=== PATIENT | female | born 1945 | race Two or more races ===

== ENCOUNTER 2019-09-22 09:36 | Inpatient (IN) | payer MEDICARE ==
[~2019-09-22] VITALS: Ht 160 cm; Wt 92.1 kg
--- NOTE | 2019-09-22 09:45 | NUR ---
, from home, c/o r hip pain 06/21 ps, s/p tripped over a box, -KO, hit head on the refrigerator. On room air, breathing evenly and unlabored. connected to the monitor and pulse ox. kept comfortable, will continue to monitor accordingyly.
[2019-09-22] MEDS ORDERED: MORPHINE SULFATE INJ 4 MG/ML DISP.SYRIN ONE (10:47)
[2019-09-22 10:59] LABS: BASOPHILS % (AUTO) 0.2 % (0.0-2.0); EOSINOPHILS % (AUTO) 0.2 % (0.0-6.0); HEMATOCRIT 43 % (33-45); HEMOGLOBIN 13.8 g/dL (11.5-14.8); LYMPHOCYTES # (AUTO) 0.8 /CMM (0.8-4.8); LYMPHOCYTES % (AUTO) 5.4 % (20.0-44.0); MEAN CORPUSCULAR HGB CONC 32 g/dl (31.0-36.0); MEAN CORPUSCULAR VOLUME 84 fL (82-100); MONOCYTES # (AUTO) 0.6 /CMM (0.1-1.30); MONOCYTES % (AUTO) 4.1 % (2.0-12.0); NEUTROPHILS # (AUTO) 13.7 /CMM (1.8-8.9); NEUTROPHILS % (AUTO) 90.1 % (43.0-81.0); PLATELET COUNT (AUTO) 274 /CMM (150-450); RED BLOOD CELL COUNT(AUTO) 5.08 MIL/uL (4.0-5.2); WHITE BLOOD COUNT (AUTO) 15.2 K/uL (4.3-11.0)
--- NOTE | 2019-09-22 10:59 | NUR ---
x-ray tech at bedside for exam.
[2019-09-22] MEDS ORDERED: MORPHINE SULFATE INJ 2 MG/ML DISP.SYRIN IV ONE ×2 (11:00→13:30)
[2019-09-22 11:09] LABS: CALCIUM, SERUM 12.1 mg/dL (8.5-10.1); CARBON DIOXIDE 23 mmol/L (21-32); CHLORIDE 106 mmol/L (98-107); CREATININE 1.3 mg/dL (0.6-1.3); GLUCOSE 143 mg/dL (74-106); POTASSIUM 4.5 mmol/L (3.5-5.1); SODIUM SERUM 141 mmol/L (136-145); UREA NITROGEN, BLOOD 22 mg/dL (7-18)
[2019-09-22 11:18] LABS: ALANINE AMINOTRANSFERASE 32 U/L (12-78); ALBUMIN 3.9 g/dL (3.4-5.0); ALKALINE PHOSPHATASE 108 U/L (46-116); ASPARTATE AMINOTRANSFERASE 27 U/L (15-37); BILIRUBIN,TOTAL 0.3 mg/dL (0.2-1.0); TOTAL PROTEIN, SERUM 8.2 g/dL (6.4-8.2)
[2019-09-22] MEDS ORDERED: AMLO10TA7 PO (12:36)
[2019-09-22] MEDS ORDERED: ATOR40TA PO (12:36)
[2019-09-22] MEDS ORDERED: LOSA100T31 PO (12:36)
--- NOTE | 2019-09-22 12:36 | NUR ---
ORTHO ON-CALL CALLED,FLAVIA ZAMORA,SPOKE WITH DR LOVE
--- NOTE | 2019-09-22 12:44 | NUR ---
PANEL SOLUTION COORDINATOR PAGED
[2019-09-22] MEDS ORDERED: ZOLPIDEM TARTRATE 5 MG TABLET PO PRN (13:00)
[2019-09-22] MEDS ORDERED: MAGNESIUM HYDROXIDE 30 ML UDC PO PRN (13:00)
[2019-09-22] MEDS ORDERED: ONDANSETRON HCL/PF 4 MG/2 ML VIAL IVP PRN (13:00)
[2019-09-22] MEDS ORDERED: Z GUARD REMEDY 2 OZ OINT TP PRN (13:00)
[2019-09-22] MEDS ORDERED: MAG HYDROX/AL HYDROX/SIMETH 30 ML UDC PO PRN (13:00)
[2019-09-22] MEDS ORDERED: ACETAMINOPHEN 325 MG TABLET PO PRN (13:00)
[2019-09-22] MEDS ORDERED: MORPHINE SULFATE INJ 10 MG/ML DISP.SYRIN IV ONE (13:30)
[2019-09-22] MEDS ORDERED: NORMAL SALINE 10 ML DISP.SYRIN IV PRN (13:30)
[2019-09-22] MEDS ORDERED: MORPHINE SULFATE INJ 2 MG/ML DISP.SYRIN ONE (13:37)
--- NOTE | 2019-09-22 14:52 | NUR ---
report given to Rabia REID for matt.
--- NOTE | 2019-09-22 15:46 | NUR ---
MS WAX COATING MACHINE TENDER NOTES Received Patient via gurney. A/O x 4. Noted high blood pressure 210/95. Will intervene as ordered. Otherwise Patient in stable condition. Breathing even and unlabored on room air with no respiratory distress, SPO2 99%. Patient stated pain on Right Hip upon movement, otherwise comfortable when resting. Provided comfort measures and provided clean, quiet environment. Skin assessment pictures taken and placed in chart. Lucio Cath in place and patent with 125ml clear yellow output noted. 20g PIV on Right Hand clean, dry, intact and flushing well. Safety precautions in place. Bed locked and set to lowest position with side rails x 2 up. All needs rendered at this time. Call light within reach. Will continue to monitor.
--- NOTE | 2019-09-22 15:59 | NUR ---
Wheeled patient via gurney going to room 205-1, RN at bedside to assume care.
[2019-09-22 16:00] VITALS: BP 210/95
[2019-09-22] MEDS: LOSARTAN POTASSIUM 50 MG TABLET PO SCH (17:16)
--- NOTE | 2019-09-22 19:00 | NUR ---
RN MS OPENING NOTES RECEIVED PATIENT IN BED AWAKE ALERT AND ORIENTED X4, RESPIRATIONS EVEN AND UNLABORED WITH EQUAL RISE AND FALL OF CHEST, AT THIS TIME DENIES ANY PAIN OR DISCOMFORT, IV SITE TO RIGHT HAND #20 G INTACT AND PATENT, SAMUELS CATHETER INTACT AND DRAINING URINE YELLOW, ORIENTED TO STAFF AND CALL LIGHT AND KEPT WITHIN REACH ALL NEEDS ATTENDED AT THIS TIME, WILL CONTINUE TO MONITOR AND ATTEND TO NEEDS.
--- NOTE | 2019-09-22 19:30 | NUR ---
MS RN CLOSING NOTES Patient asleep and resting in bed. A/O x 4. Patient in stable condition. Breathing even and unlabored on room air with no respiratory distress. Patient stated pain on Right Hip upon movement, otherwise comfortable when resting. Provided comfort measures and provided clean, quiet environment. Unable to assess Patients back. Patient refused to turn at this time. Lucio Cath in place and patent with clear yellow output noted. 20g PIV on Right Hand clean, dry, intact and flushing well. Safety precautions in place. Bed locked and set to lowest position with side rails x 2 up. All needs rendered at this time. Call light within reach. Will endorse plan of care to oncoming shift.
--- NOTE | 2019-09-22 19:48 | NUR ---
RN MS NOTES PATIENT COMPLAINT OF PAIN TO RIGHT HIP AREA 03/21 NOTED FACIAL GRIMACING NOTED CHANGE IN VS 174/82,HR 117 OFFERED NORCO PRN PATIENT AGREED NORCO PRN GIVEN ORDERED, WILL CONTINUE TO MONITOR EFFECTIVENESS, AND ANY FURTHER CHANGES IN VS.
[2019-09-22] MEDS: HYDROCODONE/APAP 5/325MG 1 EACH TABLET PO PRN (19:49)
[2019-09-22 20:00] VITALS: BP 168/85
[2019-09-22] MEDS: ATORVASTATIN 40 MG TABLET PO SCH (21:16)
--- NOTE | 2019-09-22 23:34 | NUR ---
RN MS NOTES GALO MADE AWARE OF NO CHANGE IN BLOOD PRESSURE NOTED SINCE NORCO ADMINISTRATION B/P STILL TRENDING 168/85-174/82 DESPITE PAIN MEDICATION GIVEN AND EFFECTIVE. PER PATIENT STATES B/P RUNS ON THE HIGHER SIDE, NEW ORDER OBTAINED AND RB HYDRALAZINE 20 MG PO ONCE NOW. WILL CONTINUE TO MONITOR.
[2019-09-22] MEDS ORDERED: hydrALAZINE HCL 10 MG TABLET ONE (23:57)
[2019-09-23] MEDS ORDERED: hydrALAZINE HCL 10 MG TABLET PO ONE
[2019-09-23] MEDS: MORPHINE SULFATE INJ 2 MG/ML DISP.SYRIN IV PRN (05:30)
--- NOTE | 2019-09-23 05:34 | NUR ---
rn ms notes patient complaint of pain 04/21. requested for pain medication morphine prn offered patient agreed, will continue to monitor for effectiveness.
--- NOTE | 2019-09-23 06:44 | NUR ---
RN MS CLOSING NOTES PATIENT IN BED AWAKE ALERT AND ORIENTED X4, RESPIRATIONS EVEN AND UNLABORED WITH EQUAL RISE AND FALL OF CHEST, AT THIS TIME DENIES ANY PAIN OR DISCOMFORT, IV SITE TO RIGHT HAND #20 G INTACT AND PATENT, SAMUELS CATHETER INTACT AND DRAINING URINE YELLOW 750CC TOTOAL OUTPUT,CALL LIGHT KEPT WITHIN REACH ALL NEEDS ATTENDED AT THIS TIME, WILL CONTINUE TO MONITOR AND ATTEND TO NEEDS , REPOSITIONED TOLERATED WILL ENDORSE TO NEXT SHIFT.
[2019-09-23 06:47] LABS: BASOPHILS % (AUTO) 0.2 % (0.0-2.0); EOSINOPHILS % (AUTO) 0.2 % (0.0-6.0); HEMATOCRIT 39 % (33-45); LYMPHOCYTES # (AUTO) 1.6 /CMM (0.8-4.8); MEAN CORPUSCULAR HGB CONC 33 g/dl (31.0-36.0); MEAN CORPUSCULAR VOLUME 82 fL (82-100); MONOCYTES # (AUTO) 0.8 /CMM (0.1-1.30); MONOCYTES % (AUTO) 7.3 % (2.0-12.0); NEUTROPHILS % (AUTO) 78.3 % (43.0-81.0); PLATELET COUNT (AUTO) 278 /CMM (150-450); RED BLOOD CELL COUNT(AUTO) 4.76 MIL/uL (4.0-5.2); WHITE BLOOD COUNT (AUTO) 11.5 K/uL (4.3-11.0)
[2019-09-23 07:22] LABS: CALCIUM, SERUM 11.5 mg/dL (8.5-10.1); CREATININE 1.2 mg/dL (0.6-1.3); MAGNESIUM 2.2 mg/dL (1.8-2.4); PHOSPHORUS 2.5 mg/dL (2.5-4.9); POTASSIUM 4.2 mmol/L (3.5-5.1)
--- NOTE | 2019-09-23 07:30 | NUR ---
M/S RN NOTES PATIENT IN BED AWAKE, ALERT AND ORIENTED X4. NO RESPIRATORY DISTRESS, PAIN TOLERABLE AT 5/10, OFFERED PAIN MEDICATIONS ORDERED BUT DOESN'T WANT. PATIENT'S SKIN WARM TO TOUCH, IV ACCESS SITE INTACT AND PATENT. PATIENT'S NEEDS ATTENDED, BED ON LOWEST LOCKED POSITION, CALL LIGHT WITHIN REACH. WILL CONTINUE TO MONITOR.
[2019-09-23 07:46] LABS: THYROID STIMULATING HORMONE 2.296 uIU/mL (0.358-3.74)
[2019-09-23] MEDS ORDERED: IV NS 0.9% 1,000 ML IV PRN (07:46)
[2019-09-23 08:00] VITALS: BP 205/95
[2019-09-23] MEDS: LOSARTAN POTASSIUM 50 MG TABLET PO SCH (08:02)
[2019-09-23] MEDS: PANTOPRAZOLE 40 MG TABLET.DR PO SCH (08:02)
[2019-09-23] MEDS: AMLODIPINE BESYLATE 10 MG TABLET PO SCH (08:02)
--- NOTE | 2019-09-23 09:30 | NUR ---
M/S RN NOTES PATIENT'S BP AT 0730 WAS 209/96, 107, GAVE MEDICATIONS ORDERED RECHECKED AND BP AT 218/100, 102. NOTIFIED MD OF V/S AND THAT PATIENT REFUSES PAIN MEDS AT THIS TIME. AWAITING FOR ORDERS.
[2019-09-23] MEDS: HYDROCODONE/APAP 5/325MG 1 EACH TABLET PO PRN ×3 (09:43→20:17)
[2019-09-23] MEDS: hydrALAZINE HCL IV 20 MG VIAL IV PRN ×2 (10:21→20:16)
--- NOTE | 2019-09-23 10:23 | NUR ---
M/S RN NOTES PER MD ORDER HYDRALAZINE 10MG IV Q4H PRN FOR SBP >160. PATIENT'S BP AT 212/96, 102. MEDICATION GIVEN ORDERED AND WILL REASSESS V/S IN AN HOUR.
--- NOTE | 2019-09-23 12:11 | NUR ---
M/S RN NOTES PATIENT'S BP AT 119/88, 102. PATIENT COMFORTABLE AT THIS TIME, FAMILY AT BEDSIDE. WILL CONTINUE TO MONITOR.
[2019-09-23 16:00] VITALS: BP 170/90
--- NOTE | 2019-09-23 18:50 | NUR ---
M/S RN NOTES PATIENT RESTING IN BED, NO RESPIRATORY DISTRESS, PAIN TOLERABLE AT THIS TIME. PATIENT'S IV ACCESS SITE INTACT AND PATENT. SKIN WARM TO TOUCH. PATIENT'S NEEDS ATTENDED, BED ON LOWEST LOCKED POSITION, CALL LIGHT WITHIN REACH. WILL ENDORSE TO ONCOMING NURSE.
--- NOTE | 2019-09-23 19:05 | NUR ---
RN MS OPENING NOTES RECEIVED PATIENT IN BED AWAKE ALERT AND ORIENTED X4, RESPIRATIONS EVEN AND UNLABORED WITH EQUAL RISE AND FALL OF CHEST, AT THIS TIME DENIES ANY PAIN OR DISCOMFORT, IV SITE TO RIGHT HAND #20 G INTACT AND PATENT, NO REDNESS, NO INFILTRATION PRESENT, SAMUELS CATHETER INTACT AND DRAINING URINE YELLOW, ORIENTED TO STAFF AND CALL LIGHT AND KEPT WITHIN REACH ALL NEEDS ATTENDED AT THIS TIME, SAFETY PRECAUTIONS IN PLACE , LOW BED AND LOCKED, PATIENT AWARE OF NPO AT MIDNIGHT FOR SCHEDULED AM PROCEDURE FOR SURGERY.WILL CONTINUE TO MONITOR AND ATTEND TO NEEDS. REPOSITIONING OFFERED AND FLUID OFFERED.
[2019-09-23 20:00] VITALS: BP 192/78
--- NOTE | 2019-09-23 20:16 | NUR ---
RN MS NOTES NOTED PATIENT BLOOD PRESSURE ELEVATED AT 192/78,105 PATIENT ASYMPTOMATIC HYDRALAZINE PRN ORDERED GIVEN FOR ELEVATED BLOOD PRESSURE, WILL CONTINUE TO MONITOR FOR EFFECTIVENESS.
--- NOTE | 2019-09-23 20:17 | NUR ---
RN MS NOTES PATIENT ALSO STATES SHE HAS PAIN 8/10 REQUESTED FOR NORCO PRN GIVEN ORDERED WILL CONTINUE TO MONITOR FOR EFFECTIVENESS.
[2019-09-23 20:38] VITALS: BP 192/78
[2019-09-23] MEDS: ATORVASTATIN 40 MG TABLET PO SCH (22:07)
[2019-09-24] VITALS (8 sets, daily range): BP systolic 138–175; BP diastolic 67–89
[2019-09-24] MEDS ORDERED: IV D5/0.45 NACL 1,000 ML IV PRN
[2019-09-24] MEDS: hydrALAZINE HCL IV 20 MG VIAL IV PRN (05:42)
--- NOTE | 2019-09-24 05:42 | NUR ---
RN MS NOTES NOTED BLOOD PRESSURE ELEVATED AT 198/89,115 HYDRALAZINE PRN ORDERED GIVEN WILL CONTINUE TO MONITOR PATIENT IS ASYMPTOMATIC.
[2019-09-24] MEDS: HYDROCODONE/APAP 5/325MG 1 EACH TABLET PO PRN ×3 (05:45→16:32)
--- NOTE | 2019-09-24 05:45 | NUR ---
RN MS NOTES PATIENT COMPLAINT OF PAIN TO RIGHT HIP 04/21 REQUESTED FOR NORCO PRN NORCO GIVEN ORDERED, ORDERED NPO EXCEPT FOR MEDS.
[2019-09-24 06:23] LABS: BASOPHILS % (AUTO) 0.3 % (0.0-2.0); EOSINOPHILS % (AUTO) 0.1 % (0.0-6.0); HEMATOCRIT 39 % (33-45); HEMOGLOBIN 13.1 g/dL (11.5-14.8); LYMPHOCYTES # (AUTO) 1.3 /CMM (0.8-4.8); LYMPHOCYTES % (AUTO) 12.7 % (20.0-44.0); MEAN CORPUSCULAR HGB CONC 34 g/dl (31.0-36.0); MEAN CORPUSCULAR VOLUME 83 fL (82-100); MONOCYTES % (AUTO) 9.4 % (2.0-12.0); NEUTROPHILS # (AUTO) 8.2 /CMM (1.8-8.9); NEUTROPHILS % (AUTO) 77.5 % (43.0-81.0); PLATELET COUNT (AUTO) 251 /CMM (150-450); RED BLOOD CELL COUNT(AUTO) 4.74 MIL/uL (4.0-5.2); WHITE BLOOD COUNT (AUTO) 10.6 K/uL (4.3-11.0)
[2019-09-24 06:29] LABS: ALBUMIN 3.3 g/dL (3.4-5.0); BILIRUBIN,TOTAL 0.6 mg/dL (0.2-1.0); CALCIUM, SERUM 11.6 mg/dL (8.5-10.1); CREATININE 1.3 mg/dL (0.6-1.3); MAGNESIUM 2.1 mg/dL (1.8-2.4); PHOSPHORUS 2.5 mg/dL (2.5-4.9); TOTAL PROTEIN, SERUM 7.8 g/dL (6.4-8.2)
--- NOTE | 2019-09-24 07:30 | NUR ---
RN OPENING NOTES RECEIVED PATIENT IN BED RESTING. A/OX4, ABLE TO MAKE NEEDS KNOWN. NOT IN ANY FORM OF DISTRESS. NO SOB. DENIED PAIN AT THIS TIME. IV ACCESS INTACT AND PATENT. KEPT PATIENT SAFE AND COMFORTABLE. BED IN LOW/LOCKED POSIITON. SIDERAILS UPX2, CALL LIGHT IN REACH. WILL CONT TO MONITOR ACCORDINGLY.
--- NOTE | 2019-09-24 07:47 | NUR ---
RN MS CLOSING NOTES PATIENT IN BED AWAKE ALERT AND ORIENTED X4, RESPIRATIONS EVEN AND UNLABORED WITH EQUAL RISE AND FALL OF CHEST, AT THIS TIME DENIES ANY PAIN OR DISCOMFORT, IV SITE TO RIGHT HAND #20 G INTACT AND PATENT, NO REDNESS, NO INFILTRATION PRESENT, SAMUELS CATHETER INTACT AND DRAINING URINE YELLOW, CALL LIGHT KEPT WITHIN REACH ALL NEEDS ATTENDED AT THIS TIME, SAFETY PRECAUTIONS IN PLACE , LOW BED AND LOCKED, PATIENT AWARE OF NPO AT MIDNIGHT FOR SCHEDULED AM PROCEDURE FOR SURGERY.WILL CONTINUE TO MONITOR AND ATTEND TO NEEDS AND ENDORSE TO NEXT SHIFT,PATIENT FREQUENTLY OFFERED TO BE CLEANED AND REPOSITIONED AND PATIENT REFUSED.
[2019-09-24] MEDS: AMLODIPINE BESYLATE 10 MG TABLET PO SCH (08:14)
[2019-09-24] MEDS: LOSARTAN POTASSIUM 50 MG TABLET PO SCH (08:14)
[2019-09-24] MEDS: PANTOPRAZOLE 40 MG TABLET.DR PO SCH (08:14)
[2019-09-24] MEDS: MORPHINE SULFATE INJ 2 MG/ML DISP.SYRIN IV PRN (08:16)
--- NOTE | 2019-09-24 08:50 | NUR ---
RN NOTES OFFERED TURNING AND REPOSITIONING X3 BUT PATIENT REFUSED EVEN WITH PAIN MEDICATION GIVEN. EXPLAINED RISK OF HAVING BEDSORE BUT STILL REFUSED. PER PATIENT, "IT'S OK. IM GONA WAIT TILL AFTER MY SURGERY. JUST LET ME BE PLEASE.". "
[2019-09-24] MEDS ORDERED: MIDAZOLAM HCL 2 MG/2ML VIAL ONE (10:48)
[2019-09-24] MEDS ORDERED: FENTANYL PF 250MCG/5ML AMPUL ONE (10:49)
[2019-09-24] MEDS ORDERED: MEPERIDINE HCL/PF 100 MG/ML DISP.SYRIN ONE (10:50)
[2019-09-24] MEDS ORDERED: FAMOTIDINE/PF INJ 20 MG/2 ML VIAL IV ONE (10:50)
[2019-09-24] MEDS ORDERED: ROCURONIUM BROMIDE 50 MG/5 ML ONE (10:51)
--- NOTE | 2019-09-24 11:45 | NUR ---
rn notes picked up for surgery
[2019-09-24] MEDS ORDERED: hydrALAZINE HCL 25 MG TABLET PO SCH (12:00)
[2019-09-24] MEDS ORDERED: BACITRACIN 50000 UNITS/VIAL ONE (12:14)
[2019-09-24] MEDS ORDERED: BUPIVACAINE 0.5 % PF 150 MG/30 ML VIAL ONE (12:14)
[2019-09-24] MEDS ORDERED: TRANEXAMIC ACID 1,000 MG in IV NS 0.9% 100 ML IV ONE (12:30)
[2019-09-24] MEDS ORDERED: VANCOMYCIN 1 GM VIAL ONE (14:40)
[2019-09-24] MEDS: hydrALAZINE HCL 25 MG TABLET PO PRN (16:22)
--- NOTE | 2019-09-24 16:22 | NUR ---
rn notes came back from surgery. patient in stable condition. VSS. sedated, responsive to verbal and tactile stimuli. abductor pillow in place. right hip incision dressing c/d/i. orders noted and will carry out. will monitor patient accordingly.
[2019-09-24] MEDS ORDERED: IV LR 1000 ML 1,000 ML IV PRN (16:30)
[2019-09-24 17:22] LABS: HEMOGLOBIN 12.7 g/dL (11.5-14.8)
--- NOTE | 2019-09-24 18:00 | NUR ---
rn notes offered turning and repositioning. patient refused and stated "just let me rest for now please.". patient is comfortably sleeping.
--- NOTE | 2019-09-24 19:05 | NUR ---
RN MS OPENING NOTES RECEIVED PATIENT IN BED AWAKE ALERT AND ORIENTED X4, RESPIRATIONS EVEN AND UNLABORED WITH EQUAL RISE AND FALL OF CHEST, AT THIS TIME DENIES ANY PAIN OR DISCOMFORT, IV SITE TO RIGHT HAND #20 G INTACT AND PATENT, NO REDNESS, NO INFILTRATION PRESENT, SAMUELS CATHETER INTACT AND DRAINING URINE YELLOW, CALL LIGHT KEPT WITHIN REACH ALL NEEDS ATTENDED AT THIS TIME, SAFETY PRECAUTIONS IN PLACE , LOW BED AND LOCKED, ABDUCTOR PILLOW IN PLACE, WILL CONTINUE TO MONITOR AND ATTEND TO NEEDS,PATIENT OFFERED TO BE CLEANED AND REPOSITIONED AND PATIENT REFUSED AT THIS TIME STATES " NO IM OKAY RIGHT NOW I WILL LET YOU KNOW" WILL CONTINUE TO MONITOR.
--- NOTE | 2019-09-24 19:31 | NUR ---
RN CLOSING NOTES PATIENT IN STABLE CONDITION. ALL NEEDS ATTENDED AND PROVIDED. ALL DUE MEDICATIONS GIVEN ORDERED. KEPT PATIENT SAFE AND COMFORTABLE. BED IN LOW/LOCKED POSITION. SIDERAILS UPX2, CALL LIGHT IN REACH. ENDORSED TO BUD REID FOR SILVIA.
[2019-09-24] MEDS: CEFAZOLIN 2 GM in IV D5W 100 ML IV SCH (21:38)
[2019-09-24] MEDS: ATORVASTATIN 40 MG TABLET PO SCH (21:40)
[2019-09-25] MEDS: HYDROCODONE/APAP 5/325MG 1 EACH TABLET PO PRN ×3 (03:49→19:25)
[2019-09-25] MEDS: CEFAZOLIN 2 GM in IV D5W 100 ML IV SCH (05:01)
--- NOTE | 2019-09-25 06:06 | NUR ---
RN MS NOTES ANTERIOR SKIN CLEANSED REQUESTED BY PATIENT GOWN CHANGE PROVIDED, ENCOURAGED PATIENT TO TURN AND REPOSITION DESPITE EDUCATION , PATIENT ALERT AND ORIENTED X4, PATIENT HOWEVER DID NOT WANT TO BE TURNED, STATES " SHE IS COMFORTABLE IN SLIGHT LEFT LATERAL POSITION AND SUPINE POSITION."
--- NOTE | 2019-09-25 07:07 | NUR ---
RN MS CLOSING NOTES PATIENT IN BED AWAKE ALERT AND ORIENTED X4, RESPIRATIONS EVEN AND UNLABORED WITH EQUAL RISE AND FALL OF CHEST, AT THIS TIME DENIES ANY PAIN OR DISCOMFORT, IV SITE TO RIGHT HAND #20 G INTACT AND PATENT, NO REDNESS, NO INFILTRATION PRESENT, SAMUELS CATHETER INTACT AND DRAINING URINE YELLOW 400 OUT PUT, CALL LIGHT KEPT WITHIN REACH ALL NEEDS ATTENDED AT THIS TIME, SAFETY PRECAUTIONS IN PLACE , LOW BED AND LOCKED, ABDUCTOR PILLOW IN PLACE, WILL CONTINUE TO MONITOR AND ATTEND TO NEEDS,PATIENT OFFERED TO BE CLEANED AND REPOSITIONED AND PATIENT REFUSED, WILL CONTINUE TO MONITOR AND ENDORSE TO NEXT SHIFT. PATIENT REMAINS STABLE THROUGHOUT SHIFT.
--- NOTE | 2019-09-25 07:15 | NUR ---
MS RN NOTES PATIENT IN BED ALERT ORIENTED X 4. NO ACUTE DISTRESS NOTED. BREATHING UNLABORED. NO SOB NOTED. DENIED ANY PAIN AT THIS TIME. RIGHT HIP SURGICAL DRESSING CLEAN DRY AND INTACT. SAFETY MEASURES IN PLACE. CALL LIGHT WITHIN REACH. WILL CONTINUE TO MONITOR ACCORDINGLY.
[2019-09-25 07:38] LABS: BASOPHILS % (AUTO) 0.2 % (0.0-2.0); HEMATOCRIT 35 % (33-45); HEMOGLOBIN 11.2 g/dL (11.5-14.8); LYMPHOCYTES # (AUTO) 0.9 /CMM (0.8-4.8); LYMPHOCYTES % (AUTO) 7.8 % (20.0-44.0); MEAN CORPUSCULAR HGB CONC 32 g/dl (31.0-36.0); MEAN CORPUSCULAR VOLUME 84 fL (82-100); MONOCYTES % (AUTO) 9.5 % (2.0-12.0); NEUTROPHILS % (AUTO) 82.5 % (43.0-81.0); PLATELET COUNT (AUTO) 232 /CMM (150-450); RED BLOOD CELL COUNT(AUTO) 4.16 MIL/uL (4.0-5.2); WHITE BLOOD COUNT (AUTO) 10.9 K/uL (4.3-11.0)
[2019-09-25] MEDS: PANTOPRAZOLE 40 MG TABLET.DR PO SCH (07:57)
[2019-09-25 08:00] VITALS: BP 142/72
[2019-09-25 08:08] LABS: ALANINE AMINOTRANSFERASE 23 U/L (12-78); ALBUMIN 2.6 g/dL (3.4-5.0); ALKALINE PHOSPHATASE 73 U/L (46-116); ASPARTATE AMINOTRANSFERASE 39 U/L (15-37); BILIRUBIN,TOTAL 0.3 mg/dL (0.2-1.0); CALCIUM, SERUM 10.9 mg/dL (8.5-10.1); CARBON DIOXIDE 22 mmol/L (21-32); CHLORIDE 103 mmol/L (98-107); CREATININE 1.4 mg/dL (0.6-1.3); GLUCOSE 138 mg/dL (74-106); MAGNESIUM 2.1 mg/dL (1.8-2.4); PHOSPHORUS 3.2 mg/dL (2.5-4.9); POTASSIUM 4.6 mmol/L (3.5-5.1); SODIUM SERUM 136 mmol/L (136-145); TOTAL PROTEIN, SERUM 6.8 g/dL (6.4-8.2); UREA NITROGEN, BLOOD 19 mg/dL (7-18)
[2019-09-25] MEDS: LOSARTAN POTASSIUM 50 MG TABLET PO SCH (08:51)
[2019-09-25] MEDS: AMLODIPINE BESYLATE 10 MG TABLET PO SCH (08:52)
--- NOTE | 2019-09-25 10:16 | NUR ---
MS RN NOTES RECEIVED NEW ORDER FROM DR ROSEANNE ROQUE FOR PT EVALUATION AND WBAT. NOTED AND CARRIED OUT.
--- NOTE | 2019-09-25 12:38 | NUR ---
MS RN NOTES PATIENT SEEN AND EVALUATED BY REJI AMARO WITH ORDERS TO DISCONTINUE IVF AND MAY DISCONTINUE SAMUELS CATHETER AT 1500, NOTED AND CARRIED OUT.
[2019-09-25] MEDS ORDERED: PANT40TA2 PO (14:00)
[2019-09-25] MEDS ORDERED: ZOLP5TAB2 PO (14:00)
[2019-09-25] MEDS ORDERED: HYDR-3972 PO (14:00)
[2019-09-25] MEDS ORDERED: ACET325T53 PO (14:00)
[2019-09-25] MEDS ORDERED: MAGN400O6 PO (14:00)
[2019-09-25] MEDS ORDERED: ENOX40DI SQ (14:00)
[2019-09-25] MEDS ORDERED: HYDR-4076 PO (14:00)
[2019-09-25 15:50] LABS: APPEARANCE,URINE HAZY (CLEAR); BILIRUBIN,URINE NEGATIVE (NEGATIVE); BLOOD, URINE MODERATE Ery/uL (NEGATIVE); COLOR,URINE YELLOW (YELLOW); KETONES,URINE NEGATIVE (NEGATIVE); LEUKOCYTE ESTERASE ,URINE MODERATE (NEGATIVE); NITRITE, URINE NEGATIVE (NEGATIVE); PROTEIN,URINE TRACE mg/dl (NEGATIVE); UGLUCOSE NEGATIVE (NEGATIVE); UROBILINOGEN,URINE 0.2 EU/dL (0.2)
--- NOTE | 2019-09-25 15:50 | NUR ---
MS RN NOTES SAMUELS CATHETER REMOVED WILL CONTINUE TO MONITOR FOR URINARY RETENTION
[2019-09-25] MEDS: ENOXAPARIN SODIUM 40 MG/0.4 ML DISP.SYRIN SQ SCH (15:53)
[2019-09-25 16:00] VITALS: BP 147/81
[2019-09-25 16:00] LABS: RBC,URINE 21-50 /HPF (0-2); WBC,URINE TOO NUMEROUS TO COUN /HPF (0-3)
[2019-09-25 16:01] LABS: BACTERIA,URINE 1+ /HPF (None Seen); SQUAMOUS EPITHELIAL CELL,UR Few /HPF (None Seen)
--- NOTE | 2019-09-25 19:00 | NUR ---
MS RN NOTES PATIENT IN BED ALERT ORIENTED X 4. NO ACUTE DISTRESS NOTED. BREATHING UNLABORED. NO SOB NOTED. DENIED ANY PAIN AT THIS TIME. RIGHT HIP SURGICAL DRESSING CLEAN DRY AND INTACT. SAFETY MEASURES IN PLACE. CALL LIGHT WITHIN REACH. PATIENT FOR DISCHARGE TO [place] [facility] WAITING FOR PELLETIZER OPERATOR, REPORT GIVEN TO SIMIN REID INCLUDING FOLLOW UP ROSEANNE VALLECILLO AND MONITORING FOR URINARY RETENTION DUE TO SAMUELS CATHETER REMOVED, VERBALIZED UNDERSTANDING. ENDORSE TO NIGHT NURSE FOR CONTINUATION OF CARE AND DISCHARGE.
--- NOTE | 2019-09-25 19:00 | NUR ---
MS RN NOTE RECEIVED PT IN STABLE CONDITION A/O X4, FAMILY AT BEDSIDE. NOTED WITH AMBULANCE PERSONNEL AT BEDSIDE AWAITING TO TAKE PT FOR DISCHARGE. CURRENT BLOOD PRESSURE HIGH, PRN HYDRALAZINE GIVEN FOR BP. NOTIFIED OF DELAYED DISCHARGE, WILL RECHECK BP IN 1 HR. NO SIGNS OF SOB OR DISTRESS, PAIN MANAGED BY MEDICATION. IV IN L HAND #[address] ALL CURRENT NEEDS ATTENDED TO. BED LOW, LOCKED, UPPER RAILS UP, AND CALL LIGHT WITHIN REACH. WILL CONT. TO MONITOR. Addendum: 09/26/19 at 0347 by TERESA MURRELL RN SURGICAL DRESSING NOTED TO BE DRY AND INTACT.
[2019-09-25] MEDS: hydrALAZINE HCL 25 MG TABLET PO PRN (19:24)
--- NOTE | 2019-09-25 20:35 | NUR ---
MS RN NOTE PT VITALS RECHECKED VITAL SIGNS NOTED TO BE: 152/77, 98.8, 19, 110, 95.
[2019-09-25 21:04] VITALS: BP 152/77
--- NOTE | 2019-09-25 21:16 | NUR ---
MS RN NOTE [facility] CALLED FOR NEW TRANSPORTATION NEXT AVAILABLE GRANULIZING MACHINE OPERATOR TIME IS 0100, PT MADE AWARE AND WANTS TO LEAVE TOMORROW MORNING. FLAQUITA BERTRAND MADE AWARE AND AGREED TO LET PT STAY ONE MORE NIGHT. STEFAN TOBACCO CONDITIONER ALSO MADE AWARE. WILL CONT. TO MONITOR PT.
[2019-09-25] MEDS: ATORVASTATIN 40 MG TABLET PO SCH (21:25)
--- NOTE | 2019-09-25 21:58 | NUR ---
MS RN NOTE NEW TRANSPORTATION ARRANGED WITH [facility]. SPOKE WITH [facility] #[id number] WITH MARKETING EXECUTIVE TIME 1145, WILL ENDORSE TO NEXT SHIFT. [facility] NOTIFIED. FAMILY MEMBER KENNETH ALSO MADE AWARE. Addendum: 09/25/19 at 2206 by TERESA MURRELL RN SPOKE WITH AGAPITO AT [facility], AND LEFT MESSAGE FOR KENNETH.
--- NOTE | 2019-09-26 00:40 | NUR ---
MS RN NOTE BLADDER SCANNED, WITH 412 ML NOTED. JERZY PAGED WITH NEW ORDER FOR IN AND OUT CATH. NEW ORDER CARRIED OUT.
--- NOTE | 2019-09-26 01:30 | NUR ---
MS RN NOTE PT IN AND OUT CATHETERIZED, NOTED 400 ML OUT, WILL CONTINUE TO MONITOR THROUGHOUT SHIFT.
[2019-09-26 05:06] LABS: CREATININE, URINE 86.1 MG/DL (30.0-125.0); URINE TOTAL PROTEIN 73.1 mg/dL (0-11.9)
[2019-09-26] MEDS: HYDROCODONE/APAP 5/325MG 1 EACH TABLET PO PRN (05:41)
--- NOTE | 2019-09-26 06:48 | NUR ---
MS RN NOTE PT REMAINS IN STABLE CONDITION A/O X4. NO SIGNS OF SOB OR DISTRESS, PAIN MANAGED BY MEDICATION. SURGICAL DRESSING REMAINS DRY AND INTACT, NOTED WITH ABDUCTOR PILLOW IN BETWEEN LEGS. IV IN L HAND #[address] ALL CURRENT NEEDS ATTENDED TO. BED LOW, LOCKED, UPPER RAILS UP, AND CALL LIGHT WITHIN REACH. WILL CONT. TO MONITOR AND ENDORSE TO NEXT SHIFT FOR SILVIA.
--- NOTE | 2019-09-26 07:15 | NUR ---
MS RN NOTES PATIENT IN BED ALERT ORIENTED X 4. NO ACUTE DISTRESS NOTED. BREATHING UNLABORED. NO SOB NOTED. DENIED ANY PAIN AT THIS TIME. ABDUCTOR PILLOW IN PLACE PROPERLY. SAFETY MEASURES IN PLACE. CALL LIGHT WITHIN REACH. WILL CONTINUE TO MONITOR ACCORDINGLY.
[2019-09-26] MEDS: PANTOPRAZOLE 40 MG TABLET.DR PO SCH (07:43)
[2019-09-26 08:00] VITALS: BP 148/91
[2019-09-26 08:52] LABS: BASOPHILS % (AUTO) 0.2 % (0.0-2.0); EOSINOPHILS % (AUTO) 0.7 % (0.0-6.0); HEMATOCRIT 33 % (33-45); HEMOGLOBIN 10.9 g/dL (11.5-14.8); LYMPHOCYTES % (AUTO) 9.4 % (20.0-44.0); MEAN CORPUSCULAR HGB CONC 33 g/dl (31.0-36.0); MEAN CORPUSCULAR VOLUME 83 fL (82-100); MONOCYTES # (AUTO) 0.8 /CMM (0.1-1.30); MONOCYTES % (AUTO) 8.2 % (2.0-12.0); NEUTROPHILS # (AUTO) 8.2 /CMM (1.8-8.9); NEUTROPHILS % (AUTO) 81.5 % (43.0-81.0); PLATELET COUNT (AUTO) 225 /CMM (150-450); RED BLOOD CELL COUNT(AUTO) 3.96 MIL/uL (4.0-5.2); WHITE BLOOD COUNT (AUTO) 10.1 K/uL (4.3-11.0)
[2019-09-26] MEDS: LOSARTAN POTASSIUM 50 MG TABLET PO SCH (08:56)
[2019-09-26] MEDS: CEPHALEXIN MONOHYDRATE 500 MG CAPSULE PO SCH ×2 (08:56→17:04)
[2019-09-26] MEDS: AMLODIPINE BESYLATE 10 MG TABLET PO SCH (08:56)
[2019-09-26 09:03] LABS: CALCIUM, SERUM 11.2 mg/dL (8.5-10.1); CREATININE 1.1 mg/dL (0.6-1.3); MAGNESIUM 2.2 mg/dL (1.8-2.4); PHOSPHORUS 2.4 mg/dL (2.5-4.9); POTASSIUM 4.2 mmol/L (3.5-5.1)
[2019-09-26] MEDS ORDERED: NEUTRA PHOS 1 POWD.PACKET PO ONE (11:30)
--- NOTE | 2019-09-26 11:38 | NUR ---
MS RN NOTES PATIENT SEEN AND EVALUATED BY REJI AMARO STOCK ROOM MANAGER , MADE AWARE OF URINARY RETENTION, WITH NEW ORDER FOR BLADDER SCAN EVERY 4 HOURS IF PVR MORE THAN 200CC, DO IN AND OUT CATHETER, ORDER CLARIFIED AND READ BACK TO STOCK ROOM MANAGER, NOTED AND CARRIED OUT.
--- NOTE | 2019-09-26 12:14 | NUR ---
MS RN NOTES BLADDER SCAN DONE NOTED 567ML , IN AND OUT CATHETER DONE WITH 850ML CLEAR YELLOW URINE OUTPUT. PATIENT TOLERATED WELL. WILL CONTINUE TO MONITOR FOR URINARY RETENTION.
--- NOTE | 2019-09-26 14:20 | NUR ---
MS RN NOTES PATIENT TRANSPORT FOR NUCLEAR MEDICINE PARATHYROID SCAN WITH STABLE VITAL SIGNS.
--- NOTE | 2019-09-26 15:30 | NUR ---
MS RN NOTES PATIENT CAME BACK FROM NUCLEAR MEDICINE IN STABLE CONDITION.
[2019-09-26] MEDS: ENOXAPARIN SODIUM 40 MG/0.4 ML DISP.SYRIN SQ SCH (15:44)
[2019-09-26 16:00] VITALS: BP 158/78
--- NOTE | 2019-09-26 16:20 | NUR ---
MS RN NOTES BLADDER SCAN DONE NOTED 236ML , PATIENT REFUSED STRAIGHT CATHETER DONE DESPITE OF EXPLANATION OF RISKS AND BENEFITS PATIENT SAID " I WILL TRY TO URINATE".
--- NOTE | 2019-09-26 17:10 | NUR ---
MS RN NOTES PATIENT TRANSPORTED AGAIN TO NUCLEAR MEDICINE IN STABLE CONDITION
--- NOTE | 2019-09-26 18:06 | NUR ---
MS RN NOTES DISCHARGE MEDICATION RECONCILIATION VERIFIED AND CLARIFIED WITH WILDLIFE OFFICER REJI AMARO.
--- NOTE | 2019-09-26 18:08 | NUR ---
MS RN NOTES PATIENT CAME BACK NUCLEAR MEDICINE IN STABLE CONDITION
--- NOTE | 2019-09-26 19:00 | NUR ---
MS RN NOTES PATIENT IN BED ALERT ORIENTED X 4. NO ACUTE DISTRESS NOTED. BREATHING UNLABORED. NO SOB NOTED. DENIED ANY PAIN AT THIS TIME. RIGHT HIP SURGICAL DRESSING CLEAN DRY AND INTACT. SAFETY MEASURES IN PLACE. CALL LIGHT WITHIN REACH. PATIENT FOR DISCHARGE TO [place] [facility] WAITING FOR REWIND OPERATOR, REPORT GIVEN TO CLAY REID INCLUDING FOLLOW UP ROSEANNE VALLECILLO AND MONITORING FOR URINARY RETENTION BLADDER SCAN EVERY 4 HOURS, STRAIGHT CATHETER IF GREATER THAN 200, VERBALIZED UNDERSTANDING. ENDORSE TO NIGHT NURSE FOR CONTINUATION OF CARE AND DISCHARGE.
--- NOTE | 2019-09-26 19:10 | NUR ---
MS RN NOTE RECEIVED PT IN STABLE CONDITION A/O X4, NOTED IN BED WATCHING TV. NO SIGNS OF SOB OR DISTRESS, NO C/O PAIN OR N/V. R HIP SX INCISIONS DRY AND INTACT. IV IN RFA #[address] AWAITING AMBULANCE TO DRILL OPERATOR PT FOR DISCHARGE TO SNF. ALL CURRENT NEEDS ATTENDED TO. BED LOW, LOCKED, UPPER RAILS UP AND CALL LIGHT WITHIN REACH. WILL CONT. TO MONITOR.
--- NOTE | 2019-09-26 19:39 | NUR ---
MS RN NOTE PT DISCHARGED IN STABLE CONDITION, A/O X4, NO SIGNS OF SOB OR DISTRESS. [facility] ALL BELONGINGS ACCOUNTED AND SIGNED FOR. IV AND ID BAND REMOVED. VITAL SIGNS STABLE UPON DISCHARGE. REPORT WAS GIVEN BY CHARLY TO CLAY AT [facility].
== END 2019-09-26 19:39 | DRG 469 ==
LOC: ER 09:38 → MEDSG2 15:11
PROVIDERS: ADMIT Student in an Organized Health Care Education/Training Program; ATTEND Registered Nurse
PROC: 0SR90JZ Replacement of Right Hip Joint with Synthetic Substitute, Open Approach (ICD-10-PCS; principal; 2019-09-24)
DX: S72.011A Unspecified intracapsular fracture of right femur, initial encounter for closed fracture (principal); N17.0 Acute kidney failure with tubular necrosis; N39.0 Urinary tract infection, site not specified; W18.30XA Fall on same level, unspecified, initial encounter; Y92.89 Other specified places as the place of occurrence of the external cause; K57.30 Diverticulosis of large intestine without perforation or abscess without bleeding; E78.5 Hyperlipidemia, unspecified; D25.9 Leiomyoma of uterus, unspecified; I10 Essential (primary) hypertension; E21.5 Disorder of parathyroid gland, unspecified; M16.11 Unilateral primary osteoarthritis, right hip; R73.9 Hyperglycemia, unspecified; E86.9 Volume depletion, unspecified; B96.89 Other specified bacterial agents as the cause of diseases classified elsewhere; I95.9 Hypotension, unspecified
CPT/HCPCS: 36415; 71045-TC; 72170-TC; 72192-TC; 80048-TC; 80053-TC; 80061-TC; 81000-TC; 82570-TC; 83735-TC; 83970; 84100-TC; 84155-TC; 84300-TC; 84443-TC; 84484-TC; 85025-TC; 85027-TC; 85610-TC; 85730-TC; 86850-TC; 87081-TC; 87086-TC; 88305-TC; 88311-TC; 93307-TC; 97110-TC; 97116-TC; 97530-TC; A4217; A6209; A9500; C1776; G0378; J0360; J0690; J1650; J2175; J2250; J2270; J2704; J2710; J2765; J3010; J3370; J3490; J7030; J7060; J7120

== ENCOUNTER 2023-02-05 06:53 | Inpatient (IN) | payer MEDICARE ==
[~2023-02-05] VITALS: Ht 160 cm; Wt 81.6 kg
[~2023-02-05 06:53] MED LIST: ACET325T53 PO; AMLO-213 PO; ATOR40TA PO; ENOX40DI SQ; HYDR-3972 PO; HYDR-4076 PO; LOSA100T31 PO; MAGN400O6 PO; PANT40TA2 PO; ZOLP5TAB2 PO
--- NOTE | 2023-02-05 07:08 | NUR ---
[id number] FROM HOME C/O BILATERAL FOOT & KNEE PAIN. X3DAYS HX GOUT, PARATHYROID SURGERY ON 01/28/23
[2023-02-05 07:59] LABS: BASOPHILS % (AUTO) 0.1 % (0.0-2.0); HEMATOCRIT 35 % (33-45); HEMOGLOBIN 11.1 g/dL (11.5-14.8); LYMPHOCYTES # (AUTO) 0.5 K/uL (0.8-4.8); LYMPHOCYTES % (AUTO) 2.9 % (20.0-44.0); MEAN CORPUSCULAR HGB CONC 31 g/dl (31.0-36.0); MEAN CORPUSCULAR VOLUME 84 fL (82-100); MONOCYTES # (AUTO) 1.4 K/uL (0.1-1.30); MONOCYTES % (AUTO) 8.8 % (2.0-12.0); NEUTROPHILS # (AUTO) 14.3 K/uL (1.8-8.9); NEUTROPHILS % (AUTO) 88.2 % (43.0-81.0); PLATELET COUNT (AUTO) 332 K/uL (150-450); RED BLOOD CELL COUNT(AUTO) 4.19 MIL/uL (4.0-5.2); WHITE BLOOD COUNT (AUTO) 16.2 K/uL (4.3-11.0)
[2023-02-05 08:15] LABS: CARBON DIOXIDE 19 mmol/L (21-32); CHLORIDE 100 mmol/L (98-107); GLUCOSE 255 mg/dL (74-106); POTASSIUM 4.3 mmol/L (3.5-5.1); SODIUM SERUM 135 mmol/L (136-145); UREA NITROGEN, BLOOD 38 mg/dL (7-18)
--- NOTE | 2023-02-05 08:44 | NUR ---
MOVE SHEET SUBMITTED.
--- NOTE | 2023-02-05 09:34 | NUR ---
iv access established left wrist 20g. blood sample including cultures drawn and sent to lab.
--- NOTE | 2023-02-05 09:39 | NUR ---
covid swab collected and sent to lab
--- NOTE | 2023-02-05 10:09 | NUR ---
SYNOVIAL FLUID COLLECTED BY AND SENT TO LAB
[2023-02-05] MEDS ORDERED: CEFTRIAXONE 1GM BAG (ER ONLY) 50 ML IV ONE ×2 (10:30→10:32)
[2023-02-05] MEDS ORDERED: VANCOMYCIN 1 GM in IV D5W 250 ML IV ONE (10:30)
[2023-02-05] MEDS ORDERED: IV NS 0.9% 1,000 ML BAG IV ONE (10:30)
[2023-02-05] MEDS ORDERED: hydrALAZINE HCL 25 MG TABLET PO PRN (11:00)
[2023-02-05] MEDS ORDERED: Z GUARD REMEDY 4 OZ OINT TP PRN (11:00)
[2023-02-05] MEDS ORDERED: HYDROCODONE/APAP 5/325MG TABLET PO PRN (11:00)
[2023-02-05] MEDS ORDERED: ACETAMINOPHEN 325 MG TABLET PO PRN ×2 (11:00)
[2023-02-05] MEDS ORDERED: ONDANSETRON HCL/PF 4 MG/2 ML VIAL IVP PRN (11:00)
[2023-02-05] MEDS ORDERED: MAG HYDROX/AL HYDROX/SIMETH 30 ML UDC PO PRN (11:00)
[2023-02-05] MEDS ORDERED: ZOLPIDEM TARTRATE 5 MG TABLET PO PRN (11:00)
[2023-02-05] MEDS ORDERED: MAGNESIUM HYDROXIDE 30 ML UDC PO PRN ×2 (11:00)
[2023-02-05] MEDS ORDERED: VANCOMYCIN 1.25 GM in IV D5W 250 ML IV SCH (12:00)
--- NOTE | 2023-02-05 12:00 | NUR ---
GOT BED 312-2.
--- NOTE | 2023-02-05 12:30 | NUR ---
REPORT GIVEN TO JUANA REID
--- NOTE | 2023-02-05 12:45 | NUR ---
MOVED TO INPATIENT ROOM SAFELY PER PROTOCOL
[2023-02-05 12:47] LABS: BILIRUBIN,DIRECT 0.1 mg/dL (0.0-0.2); BILIRUBIN,TOTAL 0.3 mg/dL (0.2-1.0)
[2023-02-05] MEDS ORDERED: CEFTRIAXONE 1 G in IV D5W 50 ML IV SCH (13:00)
--- NOTE | 2023-02-05 13:00 | NUR ---
ms rn received new patient from ed, alert,oriented x4,s/p left knee aspiration of synovial fluid, denies pain at this time, denies pain on room air, saturating good, all needs attended.
[2023-02-05] MEDS ORDERED: VALS160T29 PO (13:03)
[2023-02-05] MEDS ORDERED: SPIR25TA6 PO (13:03)
[2023-02-05] MEDS ORDERED: METO25TA4 PO (13:03)
[2023-02-05] MEDS: ENOXAPARIN SODIUM 30 MG/0.3 ML DISP.SYRIN SQ SCH (16:02)
[2023-02-05 16:11] VITALS: BP 131/69
--- NOTE | 2023-02-05 19:00 | NUR ---
RN OPENING NOTE RECEIVED PT AWAKE IN NBED. PT A/O X 4, ABLE TO MAKE NEEDS KNOWN. PT IS IN RA TOLERATING WELL, BREATHING EVEN AND UNLABORED @ THIS TIME. PT IV PRESENT ON LEFT WRIST #20G SALINE LOCK, PATENT, INTACT AND FLUSHES WELL W/ NO S &SX OF INFILTRATION @ SITE NOTED. PT IS IN PURE WICK DRAINING YELLOW COLORED URINE. SAFETY MEASURE IS IN PLACE. BED IN LOWEST AND LOCK POSITION. SIDE RAILS UP X 2. BEDSIDE TABLE AND CALL LIGHT IS EASY REACH. BED ALARM IS ON. WILL CONTINUE TO MONITOR ACCORDINGLY.
--- NOTE | 2023-02-05 19:00 | NUR ---
RN CLOSING NOTE PATIENT RESTING IN BED. IN NO ACUTE DISTRESS OBSERVED. RESPIRATORY EVEN AND UNLABORED IN ROOM AIR, NO SOB OR DESATURATION NOTED. SKIN IS WARM TO TOUCH KEEP CLEAN/DRY. KEPT ELEVATED HOB FOR ENSURE AIRWAY/ASPIRATION PRECAUTION, AND LOWEST BED POSITION. BED ALARM IS ON AT ALL THE TIME FOR SAFETY. 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
[2023-02-05 20:00] VITALS: BP 150/75
[2023-02-05] MEDS: ATORVASTATIN 40 MG TABLET PO SCH (21:30)
[2023-02-05] MEDS: COLCHICINE 0.6 MG TABLET PO SCH (23:31)
--- NOTE | 2023-02-06 06:35 | NUR ---
RN CLOSING NOTE PT AWAKE & RESTING COMFORTABLY IN BED. PT A/O X 4, RESPONSIVE AND FOLLOWS VERBAL COMMAND. PT IS IN RA W/ NO S &SX OF RESPIRATORY DISTRESS @ THIS TIME. PT IV PRESENT ON LEFT WRIST #20G SALINE LOCK, PATENT, INTACT AND FLUSHES WELL W/ NO S &SX OF INFILTRATION @ SITE NOTED. PT IS IN PURE WICK DRAINING YELLOW COLORED URINE. SAFETY MEASURE IS IN PLACE. BED IN LOWEST AND LOCK POSITION. SIDE RAILS UP X 2. BEDSIDE TABLE AND CALL LIGHT IS EASY REACH. BED ALARM IS ON. WILL ENDORSE TO THE NEXT SHIFT FOR SILVIA.
[2023-02-06 06:53] LABS: BASOPHILS % (AUTO) 0.1 % (0.0-2.0); HEMATOCRIT 32 % (33-45); HEMOGLOBIN 10.3 g/dL (11.5-14.8); LYMPHOCYTES # (AUTO) 0.9 K/uL (0.8-4.8); LYMPHOCYTES % (AUTO) 5.1 % (20.0-44.0); MEAN CORPUSCULAR HGB CONC 32 g/dl (31.0-36.0); MEAN CORPUSCULAR VOLUME 83 fL (82-100); MONOCYTES # (AUTO) 1.8 K/uL (0.1-1.30); MONOCYTES % (AUTO) 10.7 % (2.0-12.0); NEUTROPHILS # (AUTO) 14.2 K/uL (1.8-8.9); NEUTROPHILS % (AUTO) 84.1 % (43.0-81.0); PLATELET COUNT (AUTO) 324 K/uL (150-450); RED BLOOD CELL COUNT(AUTO) 3.84 MIL/uL (4.0-5.2); WHITE BLOOD COUNT (AUTO) 16.9 K/uL (4.3-11.0)
[2023-02-06 07:29] LABS: CALCIUM, SERUM 7.4 mg/dL (8.5-10.1); CARBON DIOXIDE 18 mmol/L (21-32); CHLORIDE 100 mmol/L (98-107); CREATININE 1.6 mg/dL (0.6-1.3); GLUCOSE 171 mg/dL (74-106); MAGNESIUM 1.7 mg/dL (1.8-2.4); PHOSPHORUS 3.2 mg/dL (2.5-4.9); POTASSIUM 3.8 mmol/L (3.5-5.1); SODIUM SERUM 136 mmol/L (136-145); UREA NITROGEN, BLOOD 30 mg/dL (7-18)
--- NOTE | 2023-02-06 07:40 | NUR ---
RN NOTES PT AWAKE IN BED, A/O X 4, RESPONSIVE AND FOLLOWS VERBAL COMMAND. PT IS IN RA W/ NO S &SX OF RESPIRATORY DISTRESS @ THIS TIME. PT IV PRESENT ON LEFT WRIST #20G SALINE LOCK, PATENT, INTACT AND FLUSHES WELL W/ NO S &SX OF INFILTRATION @ SITE NOTED. PT IS IN PURE WICK WITH TEA COLORED URINE NOTED. SAFETY MEASURE IS IN PLACE. BED IN LOWEST AND LOCK POSITION. SIDE RAILS UP X 2. BEDSIDE TABLE AND CALL LIGHT IS EASY REACH. BED ALARM IS ON. WILL CONTINUE TO MONITOR.
[2023-02-06] MEDS: PANTOPRAZOLE 40 MG TABLET.DR PO SCH (08:01)
[2023-02-06] MEDS: LOSARTAN POTASSIUM 50 MG TABLET PO SCH (08:54)
[2023-02-06] MEDS: AMLODIPINE BESYLATE 10 MG TABLET PO SCH (08:54)
[2023-02-06] MEDS: COLCHICINE 0.6 MG TABLET PO SCH ×3 (08:54→23:06)
[2023-02-06] MEDS: CEFTRIAXONE 1 G in IV D5W 50 ML IV SCH (09:46)
[2023-02-06] MEDS ORDERED: MAGNESIUM OXIDE 400 MG TABLET PO ONE (10:00)
[2023-02-06] MEDS ORDERED: DEXTROSE 50%-WATER 50 ML DISP.SYRIN IV PRN (10:30)
[2023-02-06] MEDS ORDERED: CLONIDINE HCL 0.1 MG TABLET PO PRN ×2 (10:30→17:30)
[2023-02-06] MEDS: IV NS 0.9% 1,000 ML IV SCH ×2 (10:59→21:27)
[2023-02-06] MEDS ORDERED: CHOL100043 PO (11:44)
[2023-02-06] MEDS ORDERED: VITA-354 PO (11:44)
[2023-02-06] MEDS ORDERED: CALC500T13 PO (11:44)
[2023-02-06] MEDS ORDERED: ASPI-1420 PO (11:44)
[2023-02-06] MEDS: BLOOD SUGAR DIAGNOSTIC 1 EACH STRIP IN SCH ×3 (11:54→21:10)
[2023-02-06] MEDS: HYDROCODONE/APAP 10/325MG TABLET PO PRN (11:55)
[2023-02-06] MEDS: ENOXAPARIN SODIUM 30 MG/0.3 ML DISP.SYRIN SQ SCH (11:56)
[2023-02-06] MEDS: INSULIN REGULAR, HUMAN 100 UNIT/ML 3 ML VIAL SQ PRN ×2 (12:00→17:39)
[2023-02-06 12:15] LABS: URIC ACID 10.8 mg/dL (2.6-7.2)
--- NOTE | 2023-02-06 13:04 | NUR ---
RN NOTES NOTIFIED DR. HERNANDEZ TO RECONCILE HOME MEDICATIONS, WILL FOLLOW UP
[2023-02-06 15:17] VITALS: BP 155/65
[2023-02-06] MEDS: CALCIUM CARBONATE 500 MG TAB.CHEW PO SCH (16:18)
[2023-02-06 16:54] LABS: BILIRUBIN,URINE NEGATIVE (NEGATIVE); COLOR,URINE YELLOW (YELLOW); LEUKOCYTE ESTERASE ,URINE 2+ (NEGATIVE); NITRITE, URINE POSITIVE (NEGATIVE); PH,URINE 5.5 (5.0-8.0); PROTEIN,URINE 2+ mg/dl (NEGATIVE); UGLUCOSE NEGATIVE (NEGATIVE); UROBILINOGEN,URINE 0.2 EU/dL (0.2)
[2023-02-06 17:07] LABS: BACTERIA,URINE 2+ /HPF (None Seen); EOSINOPHIL,URINE None Seen; SQUAMOUS EPITHELIAL CELL,UR Few /HPF (None Seen); URINE AMORPHOUS URATE Moderate /HPF (None Seen); WBC,URINE 81-100 /HPF (0-3)
[2023-02-06 18:06] VITALS: BP 126/81
--- NOTE | 2023-02-06 18:42 | NUR ---
RN NOTES NOTIFIED DR. HERNANDEZ FOR BLADDER DISTENTION , IN/OUT URINE CATHETERIZATION DONE WITH 800ML URINE OUTPUT.
--- NOTE | 2023-02-06 18:46 | NUR ---
RN NOTES PT AWAKE IN BED, A/O X 4, RESPONSIVE AND FOLLOWS VERBAL COMMAND. PT IS IN RA W/ NO S &SX OF RESPIRATORY DISTRESS @ THIS TIME. PT IV PRESENT ON LEFT WRIST #20G SALINE LOCK, PATENT, INTACT AND FLUSHES WELL W/ NO S &SX OF INFILTRATION @ SITE NOTED. SAFETY MEASURE IS IN PLACE. BED IN LOWEST AND LOCK POSITION. SIDE RAILS UP X 2. BEDSIDE TABLE AND CALL LIGHT IS EASY REACH. BED ALARM IS ON. DENIES PAIN AND DISCOMFORT AT THIS TIME. WILL ENDORSE TO THE NEXT SHIFT FOR SILVIA.
--- NOTE | 2023-02-06 19:30 | NUR ---
MS RN OPENING NOTE RECEIVED PATIENT IN BED, WITH EYES CLOSED BUT EASY TO AROUSE AND RESPONSIVE. ALERT AND ORIENTED X4. ABLE TO MAKE NEEDS KNOWN. AFEBRILE AND NOT IN ANY FORM OF ACUTE DISTRESS. WITH IV ACCESS ON L WRIST 20G RUNNING WITH NS AT 75ML/HR. ON PUREWICK, NOTED WITH (+) URINE OUTPUT. SAFETY MEASURES IN PLACE. KEPT BED IN LOCKED AND IN LOW POSITION. SIDE RAILS UP X2. ADVISED TO USE THE CALL LIGHT WHEN IN NEED OF ASSISTANCE.
[2023-02-06 20:33] VITALS: BP 135/67
[2023-02-06] MEDS: ATORVASTATIN 40 MG TABLET PO SCH (21:09)
--- NOTE | 2023-02-06 23:40 | NUR ---
RESEARCH AND DEVELOPMENT CHEMIST NOTE PATIENT WAS NOTED WITH MINIMAL URINE OUTPUT IN THE PUREWICK DESPITE ON IV HYDRATION OF NS AT 90ML/HR. PATIENT IS ALSO DRINKING SOME WATER. ALSO NOTED WITH DISTENDED BLADDER. BLADDER SCAN WAS DONE WITH 740ML PVR. NOTIFIED OIL BURNER JOURNEYMAN ALLISON AND ORDERED FOR INSERTION OF SAMUELS CATHETER. INFORMED THE PATIENT ABOUT THE PLAN AND AGREED TO IT. INSERTED SAMUELS CATH FR16 ASEPTICALLY, TOLERATED WELL WITH GOOD URINE OUTPUT.
[2023-02-07 06:29] LABS: BASOPHILS % (AUTO) 0.3 % (0.0-2.0); EOSINOPHILS % (AUTO) 0.7 % (0.0-6.0); HEMATOCRIT 30 % (33-45); HEMOGLOBIN 9.4 g/dL (11.5-14.8); LYMPHOCYTES % (AUTO) 7.8 % (20.0-44.0); MEAN CORPUSCULAR HGB CONC 32 g/dl (31.0-36.0); MEAN CORPUSCULAR VOLUME 86 fL (82-100); MONOCYTES # (AUTO) 1.3 K/uL (0.1-1.30); MONOCYTES % (AUTO) 9.6 % (2.0-12.0); NEUTROPHILS # (AUTO) 10.7 K/uL (1.8-8.9); NEUTROPHILS % (AUTO) 81.6 % (43.0-81.0); PLATELET COUNT (AUTO) 298 K/uL (150-450); RED BLOOD CELL COUNT(AUTO) 3.44 MIL/uL (4.0-5.2); WHITE BLOOD COUNT (AUTO) 13.1 K/uL (4.3-11.0)
--- NOTE | 2023-02-07 06:30 | NUR ---
MS RN CLOSING NOTE PATIENT IN BED, ASLEEP BUT EASY TO AROUSE AND RESPONSIVE. ALERT AND ORIENTED X4. ABLE TO MAKE NEEDS KNOWN. AFEBRILE AND NOT IN ANY FORM OF ACUTE DISTRESS. WITH IV ACCESS ON L WRIST 20G RUNNING WITH NS AT 90ML/HR. WITH INTACT SAMUELS CATHETER, DRAINING WELL WITH VASU COLORED URINE OUTPUT, NO HEMATURIA OR SEDIMENTS NOTED. MONITORED FOR ANY S/SX. OF HYPO/HYPERGLYCEMIA. MEDICATED ORDERED. CONTINUOUS ON IV ATB, MONITORED FOR ANY ADVERSE REACTION. SAFETY MEASURES IN PLACE. KEPT BED IN LOCKED AND IN LOW POSITION. SIDE RAILS UP X2. ADVISED TO USE THE CALL LIGHT WHEN IN NEED OF ASSISTANCE. ALL NURSING NEEDS ATTENDED. ENDORSED TO INCOMING SHIFT FOR CONTINUITY OF CARE.
[2023-02-07 06:34] LABS: CALCIUM, SERUM 6.9 mg/dL (8.5-10.1); CARBON DIOXIDE 21 mmol/L (21-32); CHLORIDE 104 mmol/L (98-107); CREATININE 1.8 mg/dL (0.6-1.3); GLUCOSE 115 mg/dL (74-106); MAGNESIUM 1.9 mg/dL (1.8-2.4); PHOSPHORUS 3.2 mg/dL (2.5-4.9); POTASSIUM 4.3 mmol/L (3.5-5.1); SODIUM SERUM 137 mmol/L (136-145); UREA NITROGEN, BLOOD 36 mg/dL (7-18)
[2023-02-07] MEDS: BLOOD SUGAR DIAGNOSTIC 1 EACH STRIP IN SCH ×4 (06:38→21:49)
--- NOTE | 2023-02-07 07:49 | NUR ---
MS RN OPENING NOTE PATIENT AWAKE IN BED, ALERT AND ORIENTED X4. ABLE TO MAKE NEEDS KNOWN. AFEBRILE AND NOT IN ANY FORM OF ACUTE DISTRESS. WITH IV ACCESS ON L WRIST 20G RUNNING WITH NS AT 90ML/HR. WITH INTACT SAMUELS CATHETER, DRAINING WELL WITH VASU COLORED URINE OUTPUT, NO HEMATURIA OR SEDIMENTS NOTED. SAFETY MEASURES IN PLACE. KEPT BED IN LOCKED AND IN LOW POSITION. SIDE RAILS UP X2. ADVISED TO USE THE CALL LIGHT WHEN IN NEED OF ASSISTANCE. WILL CONTINUE TO MONITOR.
[2023-02-07 08:30] VITALS: BP 127/61
[2023-02-07] MEDS: PANTOPRAZOLE 40 MG TABLET.DR PO SCH (08:32)
[2023-02-07] MEDS: COLCHICINE 0.6 MG TABLET PO SCH ×2 (08:33→15:59)
[2023-02-07] MEDS: ASPIRIN EC 81 MG TABLET.DR PO SCH (08:33)
[2023-02-07] MEDS: CALCIUM CARBONATE 500 MG TAB.CHEW PO SCH ×2 (08:34→16:00)
[2023-02-07] MEDS: LOSARTAN POTASSIUM 50 MG TABLET PO SCH (08:34)
[2023-02-07] MEDS: SPIRONOLACTONE 25 MG TABLET PO SCH (08:34)
[2023-02-07] MEDS: AMLODIPINE BESYLATE 10 MG TABLET PO SCH (08:35)
[2023-02-07] MEDS: METOPROLOL SUCCINATE 25 MG TAB.SR.24H PO SCH (08:37)
[2023-02-07] MEDS: IV NS 0.9% 1,000 ML IV SCH ×2 (08:46→18:44)
[2023-02-07] MEDS: CEFTRIAXONE 1 G in IV D5W 50 ML IV SCH (09:33)
[2023-02-07] MEDS: HYDROCODONE/APAP 10/325MG TABLET PO PRN ×2 (10:38→16:57)
[2023-02-07] MEDS: ENOXAPARIN SODIUM 30 MG/0.3 ML DISP.SYRIN SQ SCH (11:49)
[2023-02-07] MEDS ORDERED: VANCOMYCIN HCL 0.75 GM in IV D5W 250 ML IV SCH (12:00)
[2023-02-07] MEDS ORDERED: VANCOMYCIN 1.25 GM in IV D5W 250 ML IV SCH (12:00)
[2023-02-07 15:58] VITALS: BP 142/73
--- NOTE | 2023-02-07 19:30 | NUR ---
MS LUBA INITIAL NOTES Received report from am nurse and seen pt lying in bed on semi fowlers position with side rails x2 up , she's with IVF NS at 110ml infusing at this time. Denies any pain or any discomfort. She also have monge with clear yellow output noted at this time. Encourage pt to use the call light system f she needs some help or needs the nurse. Pt understood well. Kept her warm and comfortable at all times. bed in low and lock in position with side rails x2 up. call light at reach. will continue monitoring.
[2023-02-07 20:00] VITALS: BP 121/59
[2023-02-07] MEDS: ATORVASTATIN 40 MG TABLET PO SCH (21:52)
[2023-02-07] MEDS: INSULIN REGULAR, HUMAN 100 UNIT/ML 3 ML VIAL SQ PRN (21:53)
--- NOTE | 2023-02-07 22:15 | NUR ---
MS LUBA NOTES Routine meds given and blood sugar checked done 91, no insulin given as ordered, no signs of hypo glycemia noted. pt refused to have snack but have IVF NS at this time. Will continue monitoring. Place call light at reach.
--- NOTE | 2023-02-08 02:09 | NUR ---
MS [employer]FT PNEUDRAULIC SYSTEMS MECHANIC NOTES PT REMAINS SLEEPING COMFORTABLY IN BED WITHOUT ANY DISCOMFORT NOTED. KEPT HER WARM AND COMFORTABLE AT ALL TIME .
[2023-02-08] MEDS: IV NS 0.9% 1,000 ML IV SCH ×2 (05:47→15:58)
[2023-02-08 06:17] LABS: BASOPHILS # (AUTO) 0.1 K/uL (0.0-0.2); BASOPHILS % (AUTO) 0.6 % (0.0-2.0); EOSINOPHILS % (AUTO) 2.6 % (0.0-6.0); HEMATOCRIT 32 % (33-45); HEMOGLOBIN 10.2 g/dL (11.5-14.8); LYMPHOCYTES # (AUTO) 0.9 K/uL (0.8-4.8); LYMPHOCYTES % (AUTO) 9.9 % (20.0-44.0); MEAN CORPUSCULAR HGB CONC 32 g/dl (31.0-36.0); MEAN CORPUSCULAR VOLUME 84 fL (82-100); MONOCYTES # (AUTO) 0.8 K/uL (0.1-1.30); MONOCYTES % (AUTO) 8.7 % (2.0-12.0); NEUTROPHILS # (AUTO) 7.2 K/uL (1.8-8.9); NEUTROPHILS % (AUTO) 78.2 % (43.0-81.0); PLATELET COUNT (AUTO) 341 K/uL (150-450); RED BLOOD CELL COUNT(AUTO) 3.74 MIL/uL (4.0-5.2); WHITE BLOOD COUNT (AUTO) 9.1 K/uL (4.3-11.0)
[2023-02-08 06:31] LABS: CALCIUM, SERUM 7.1 mg/dL (8.5-10.1); CARBON DIOXIDE 20 mmol/L (21-32); CHLORIDE 105 mmol/L (98-107); CREATININE 1.6 mg/dL (0.6-1.3); GLUCOSE 110 mg/dL (74-106); POTASSIUM 4.4 mmol/L (3.5-5.1); SODIUM SERUM 137 mmol/L (136-145); UREA NITROGEN, BLOOD 35 mg/dL (7-18)
[2023-02-08] MEDS: BLOOD SUGAR DIAGNOSTIC 1 EACH STRIP IN SCH ×2 (06:43→11:49)
[2023-02-08] MEDS: INSULIN REGULAR, HUMAN 100 UNIT/ML 3 ML VIAL SQ PRN (06:43)
--- NOTE | 2023-02-08 06:48 | NUR ---
MS LEAD NETWORK ENGINEER CLOSING NOTES PT AWAKE AND ALERT WATCHING TV AT THIS TIME, MORNING CARE RENDERED WITH THE HELPED OF PROSTHODONTIST/OWNER, REPOSITION HER FOR COMFORT. STABLE THROUGHOUT THE NIGHT . ALL DUE MEDS GIVEN AND ALL NEEDS MET. BLOOD SUGAR CHECKED DONE 92, NO INSULIN DUE GIVEN AT THIS TIME, NO SIGNS OF HYPO GLYCEMIA NOTED. SAMUELS DRAINING WELL 900 OUTPUT NOTED CLEAR YELLOW. KEPT ELEVATE HER HANDS AND BILATERAL HEELS ON PILLOWS. BED IN LOW AND LOCK IN POSITION. PLACE CALL LIGHT AT REACH. WILL ENDORSE TO AM NURSE FOR CONTINUITY OF CARE.
--- NOTE | 2023-02-08 07:30 | NUR ---
Pt received in bed, A,A,O x 4. Pt denies pain at this time. All needs are met at this time, will continue to monitor.
[2023-02-08 08:00] VITALS: BP 133/58
[2023-02-08] MEDS: COLCHICINE 0.6 MG TABLET PO SCH ×2 (08:49)
[2023-02-08] MEDS: SPIRONOLACTONE 25 MG TABLET PO SCH (08:50)
[2023-02-08] MEDS: ASPIRIN EC 81 MG TABLET.DR PO SCH (08:51)
[2023-02-08] MEDS: LOSARTAN POTASSIUM 50 MG TABLET PO SCH (08:52)
[2023-02-08] MEDS: PANTOPRAZOLE 40 MG TABLET.DR PO SCH (08:53)
[2023-02-08] MEDS: METOPROLOL SUCCINATE 25 MG TAB.SR.24H PO SCH (08:54)
[2023-02-08] MEDS: CALCIUM CARBONATE 500 MG TAB.CHEW PO SCH (08:55)
[2023-02-08 08:56] VITALS: BP 133/58
[2023-02-08] MEDS: AMLODIPINE BESYLATE 10 MG TABLET PO SCH (08:56)
[2023-02-08] MEDS: CEFTRIAXONE 1 G in IV D5W 50 ML IV SCH (09:41)
[2023-02-08] MEDS ORDERED: VANCOMYCIN HCL 0.75 GM in IV D5W 250 ML IV SCH (12:00)
[2023-02-08] MEDS: ENOXAPARIN SODIUM 30 MG/0.3 ML DISP.SYRIN SQ SCH (12:07)
[2023-02-08] MEDS: HYDROCODONE/APAP 10/325MG TABLET PO PRN (15:51)
--- NOTE | 2023-02-08 16:05 | NUR ---
RN MS NOTES PT IN BED, AWAKE, ALERT AND ORIENTED, PAIN MEDS GIVEN ORDERED FOR LEFT KNEE PAIN, RESPIRATIONS NORMAL, SEEN BY DR. SALGUERO TODAY, DISCHARGE AND MEDICATION INSTRUCTIONS PROVIDED TO PT, VERBALIZED UNDERSTANDING, PT TO BE TRANSFERRED TO [facility], PT AWARE AND AGREEABLE WITH PLAN, BELONGINGS ACCOUNTED FOR, REPORT GIVEN TO MATT REID, PICKED UP BY 2 AMBULANCE PERSONNEL, [facility].
== END 2023-02-08 16:21 | DRG 548 ==
LOC: ER 07:01 → MED 12:13
PROVIDERS: ADMIT Internal Medicine
PROC: 0S9D3ZX Drainage of Left Knee Joint, Percutaneous Approach, Diagnostic (ICD-10-PCS; principal; 2023-02-05)
DX: M00.9 Pyogenic arthritis, unspecified (principal); N17.0 Acute kidney failure with tubular necrosis; R65.11 Systemic inflammatory response syndrome (SIRS) of non-infectious origin with acute organ dysfunction; M10.09 Idiopathic gout, multiple sites; I11.9 Hypertensive heart disease without heart failure; Z20.822 Contact with and (suspected) exposure to COVID-19; E87.5 Hyperkalemia; E89.2 Postprocedural hypoparathyroidism; M19.90 Unspecified osteoarthritis, unspecified site; Z79.899 Other long term (current) drug therapy; E83.42 Hypomagnesemia; Z79.01 Long term (current) use of anticoagulants; E78.5 Hyperlipidemia, unspecified; E66.9 Obesity, unspecified; R73.9 Hyperglycemia, unspecified; Z68.31 Body mass index [BMI] 31.0-31.9, adult; I70.0 Atherosclerosis of aorta; D63.8 Anemia in other chronic diseases classified elsewhere; E86.0 Dehydration
CPT/HCPCS: 36415; 71045-TC; 73564-TC; 76770-TC; 80048-TC; 80202-TC; 81001; 82247-TC; 82248-TC; 82962-TC; 83605-TC; 83735-TC; 84100-TC; 84484-TC; 84550-TC; 85025-TC; 85652-TC; 85730-TC; 86140-TC; 87040-TC; 87081-TC; 87086-TC; 89060-TC; A4223; C9803; G0378; J0696; J1650; J1815; J2405; J3370; J7030; J7050; J7060